=== PATIENT | male | born 1935 | race African-American/Black ===

== ENCOUNTER 2018-09-04 20:42 | Inpatient (IN) | payer OTHER ==
[~2018-09-04] VITALS: Ht 152.4 cm; Wt 104.3 kg
[2018-09-04] MEDS ORDERED: SODIUM CHLORIDE 0.9% 1,000 ML IV ONE (21:24)
[2018-09-04 22:14] LABS: HEMATOCRIT. 35.8 % (42.0-52.0); HEMOGLOBIN. 11.8 g/dL (14.0-18.0); MEAN PLATELET VOLUME 10.2 fl (7.4-10.4); PLATELET 114 x1000/uL (130-400); RED BLOOD CELL COUNT 4.37 mill/uL (4.7-6.1); RED CELL DISTRIBUTION WIDTH 15.2 % (11.6-14.6)
[2018-09-04 22:17] LABS: CHLORIDE 100 mEq/L (98-107)
[2018-09-04 22:19] LABS: INR 1.3; PROTHROMBIN TIME 13.4 sec (9.1-11.1)
[2018-09-04 22:39] LABS: PLATELET ESTIMATE DECREASED
[2018-09-04] MEDS ORDERED: SODIUM CHLORIDE 0.9% 1,000 ML IV SCH (23:44)
[2018-09-04] MEDS ORDERED: AZITHROMYCIN 500 MG in DEXT 5% WATER 250 ML IV STA (23:48)
[2018-09-05] MEDS ORDERED: CEFTRIAXONE 1 G PREMIX 50 ML IV ONE
[2018-09-05] MEDS ORDERED: MAGNESIUM/ALUMINUM HYDROXIDE/SIMETHICONE 30ML UDC PO PRN (00:15)
[2018-09-05] MEDS ORDERED: ONDANSETRON HCL 4MG/2ML INJ IV PRN (00:15)
[2018-09-05] MEDS ORDERED: ALBUTEROL (0.083%) 2.5MG/3ML NEB HHN STA (00:28)
[2018-09-05] MEDS ORDERED: IPRATROPIUM BROMIDE (0.02%) 0.5MG/2.5ML NEB HHN STA (00:28)
[2018-09-05] MEDS: ACETAMINOPHEN 325MG TABLET PO PRN (00:57)
[2018-09-05 02:05] LABS: CLARITY URINE CLOUDY (CLEAR); COLOR URINE DARK YELLOW (YELLOW); KETONES URINE TRACE (NEGATIVE); LEUKOCYTE ESTERASE URINE 2+ (NEGATIVE); NITRITE URINE NEGATIVE (NEGATIVE); OCCULT BLOOD URINE 2+ (NEGATIVE); PH URINE 5.5 (4.5-8.0); PROTEIN URINE 2+ (NEGATIVE)
[2018-09-05 04:00] VITALS: BP 143/62
[2018-09-05] MEDS ORDERED: IPRATROPIUM/ALBUTEROL 0.5-3(2.5)MG/3ML NEB HHN PRN (05:30)
[2018-09-05 06:39] VITALS: BP 157/75
[2018-09-05 08:00] VITALS: BP 139/64
[2018-09-05] MEDS ORDERED: LEVOFLOXACIN 250MG PREMIX 50 ML IV SCH (11:00)
[2018-09-05] MEDS ORDERED: BENZONATATE 100MG CAPSULE PO PRN (11:00)
[2018-09-05] MEDS ORDERED: DIATR MEGLU/DIATRIZOATE SOLN 30ML PO SCH (11:00)
[2018-09-05 11:22] LABS: HEMATOCRIT 35.5 % (42.0-52.0); HEMOGLOBIN 11.6 g/dL (14.0-18.0); MEAN CORPUSCULAR VOLUME 82.5 fL (80.0-94.0); PLATELET 106 x1000/uL (130-400); RED BLOOD CELL COUNT 4.31 mill/uL (4.7-6.1); RED CELL DISTRIBUTION WIDTH 15.2 % (11.6-14.6)
[2018-09-05 11:30] LABS: BG BASE EXCESS -1.4 mmol/L (-2.0-2.0); BG CARBOXYHEMOGLOBIN 0.6 % (0.5-1.5); BG DEOXYHEMOGLOBIN 2.9 % (0.0-5.0); BG FRACTION INSPIRED OXYGEN 28; BG HCO3 ACT 21.3 mmol/L (22.0-26.0); BG METHEMOGLOBIN 0.5 % (0.0-1.5); BG OXYGEN SATURATION 97.1 % (92.0-98.5); BG PCO2 29.6 mmHg (35.0-45.0); BG PH 7.474 (7.350-7.450); BG PO2 87.8 mmHg (75.0-100.0); BG SAMPLE SITE RIGHT RADIAL; BG TOTAL HEMOGLOBIN 11.8 g/dL (12.0-18.0); BG VENT MODE NASAL CANNULA
[2018-09-05 11:59] LABS: CHLORIDE 102 mEq/L (98-107)
[2018-09-05 12:00] VITALS: BP 130/64
[2018-09-05 12:19] LABS: CREATINE KINASE 1187 IU/L (39-308)
[2018-09-05 12:50] LABS: HEPATITIS B SURFACE ANTIGEN NEGATIVE
[2018-09-05 13:17] LABS: HEPATITIS B CORE AB IGM NEGATIVE
[2018-09-05 13:18] LABS: HEPATITIS A AB IGM NEGATIVE (NEGATIVE)
[2018-09-05] MEDS: IPRATROPIUM/ALBUTEROL 0.5-3(2.5)MG/3ML NEB HHN SCH ×2 (13:24→20:17)
[2018-09-05] MEDS: SODIUM CHLORIDE 0.9% 1,000 ML IV SCH (15:41)
[2018-09-05] MEDS: LEVOFLOXACIN 250MG PREMIX 50 ML IV SCH (15:41)
[2018-09-05 16:00] VITALS: BP 128/67
[2018-09-05] MEDS ORDERED: MIRT15TA MT (19:04)
[2018-09-05] MEDS ORDERED: VERA240C3 MT (19:04)
[2018-09-05] MEDS ORDERED: TERA10CA4 MT (19:04)
[2018-09-05] MEDS ORDERED: ATOR-2 MT (19:04)
[2018-09-05] MEDS ORDERED: FINA5TAB11 MT (19:04)
[2018-09-05] MEDS ORDERED: CLOP75TA16 MT (19:04)
[2018-09-05] MEDS ORDERED: QUET25TA MT (19:04)
[2018-09-05] MEDS ORDERED: BUPR-43 MT (19:04)
[2018-09-05] MEDS ORDERED: OMEP20CA10 MT (19:04)
[2018-09-05 20:00] VITALS: BP 140/74
[2018-09-05] MEDS: GUAIFENESIN 600MG ER TABLET PO SCH (21:41)
[2018-09-06] VITALS: BP 140/71
[2018-09-06] MEDS ORDERED: CEFTRIAXONE 1 G PREMIX 50 ML IV SCH (00:30)
[2018-09-06] MEDS: ACETAMINOPHEN 325MG TABLET PO PRN (00:51)
[2018-09-06] MEDS: SODIUM CHLORIDE 0.9% 1,000 ML IV SCH (01:02)
[2018-09-06] MEDS: IPRATROPIUM/ALBUTEROL 0.5-3(2.5)MG/3ML NEB HHN SCH ×3 (02:14→14:12)
[2018-09-06 04:00] VITALS: BP 103/68
[2018-09-06 07:02] LABS: HEMATOCRIT 32.8 % (42.0-52.0); HEMOGLOBIN 10.8 g/dL (14.0-18.0); MEAN CORPUSCULAR HEMOGLOBIN 27.1 pg (28.0-32.0); MEAN CORPUSCULAR VOLUME 82.1 fL (80.0-94.0); PLATELET 103 x1000/uL (130-400); RED BLOOD CELL COUNT 3.99 mill/uL (4.7-6.1); RED CELL DISTRIBUTION WIDTH 15.2 % (11.6-14.6)
[2018-09-06 08:00] VITALS: BP 133/75
[2018-09-06 08:10] LABS: CHLORIDE 104 mEq/L (98-107)
[2018-09-06] MEDS: GUAIFENESIN 600MG ER TABLET PO SCH (09:37)
[2018-09-06 12:00] VITALS: BP 119/73
[2018-09-06] MEDS ORDERED: BENZONATATE 100MG CAPSULE PO SCH (12:00)
[2018-09-06] MEDS: LEVOFLOXACIN 250MG PREMIX 50 ML IV SCH (12:19)
[2018-09-06 13:38] VITALS: BP 119/73
== END 2018-09-06 14:45 | disposition short-term general hospital (02) | DRG 871 ==
LOC: ER 20:42 → 5WST 23:47 → EDBEDREQTM 23:51 → EDBEDREQ 23:51 → ENRESERV 09-05 01:58
PROVIDERS: ADMIT Family Medicine Adult Medicine; ATTEND Family Medicine Adult Medicine
DX: A41.51 Sepsis due to Escherichia coli [E. coli] (principal); J96.00 Acute respiratory failure, unspecified whether with hypoxia or hypercapnia; N39.0 Urinary tract infection, site not specified; N17.9 Acute kidney failure, unspecified; I13.0 Hypertensive heart and chronic kidney disease with heart failure and stage 1 through stage 4 chronic kidney disease, or unspecified chronic kidney disease; J45.901 Unspecified asthma with (acute) exacerbation; I69.354 Hemiplegia and hemiparesis following cerebral infarction affecting left non-dominant side; I50.40 Unspecified combined systolic (congestive) and diastolic (congestive) heart failure; F32.9 Major depressive disorder, single episode, unspecified; E11.22 Type 2 diabetes mellitus with diabetic chronic kidney disease; E86.0 Dehydration; F03.90 Unspecified dementia, unspecified severity, without behavioral disturbance, psychotic disturbance, mood disturbance, and anxiety; J40 Bronchitis, not specified as acute or chronic; J06.9 Acute upper respiratory infection, unspecified; N18.9 Chronic kidney disease, unspecified; Z87.891 Personal history of nicotine dependence
CPT/HCPCS: 36415; 36600; 70551; 71045; 71250; 74176; 82375; 82550; 82805; 82962; 83605; 83880; 84145; 84484; 85027; 86705; 86709; 86803; 87077; 87186; 87340; 87804; 93005; 94640; 96365; 96367; 99285; J0456; J0696; J1956; J2405; J7030; J7060; J7611; J7620; Q9963

== ENCOUNTER 2018-09-19 07:02 | Inpatient (IN) | payer OTHER ==
[~2018-09-19] VITALS: Ht 175.3 cm; Wt 94.3 kg
[~2018-09-19 07:02] MED LIST: ATOR-2 MT; BUPR-43 MT; CLOP75TA16 MT; FINA5TAB11 MT; MIRT15TA MT; OMEP20CA10 MT; QUET25TA MT; TERA10CA4 MT; VERA240C3 MT
[2018-09-19 07:27] LABS: BASOPHILS % 0.4 % (0.0-2.0); EOSINOPHILS % 3.9 % (0.0-5.0); HEMATOCRIT. 32.9 % (42.0-52.0); HEMOGLOBIN. 10.8 g/dL (14.0-18.0); LYMPHOCYTES % 25.3 % (20.0-50.0); MEAN CORPUSCULAR VOLUME 82.1 fL (80.0-94.0); MEAN PLATELET VOLUME 8.5 fl (7.4-10.4); MONOCYTES % 11.7 % (2.0-8.0); NEUTROPHILS % 58.7 % (40.0-76.0); PLATELET 317 x1000/uL (130-400); RED BLOOD CELL COUNT 4.01 mill/uL (4.7-6.1); RED CELL DISTRIBUTION WIDTH 15.6 % (11.6-14.6)
[2018-09-19 07:33] LABS: CHLORIDE 106 mEq/L (98-107)
[2018-09-19 07:39] LABS: ETHANOL BLOOD < 10 mg/dL; INR 1.2; LDL CHOLESTEROL 50 mg/dL (5-100); PROTHROMBIN TIME 12.5 sec (9.1-11.1)
[2018-09-19 09:12] LABS: CLARITY URINE CLEAR (CLEAR); COLOR URINE YELLOW (YELLOW); KETONES URINE NEGATIVE (NEGATIVE); LEUKOCYTE ESTERASE URINE NEGATIVE (NEGATIVE); NITRITE URINE NEGATIVE (NEGATIVE); OCCULT BLOOD URINE NEGATIVE (NEGATIVE); PROTEIN URINE NEGATIVE (NEGATIVE); SPECIFIC GRAVITY URINE 1.013 (1.005-1.030); UROBILINOGEN URINE 0.2 E.U./dL (0.2-1.0)
[2018-09-19 10:52] LABS: *AMPHETAMINES SCREEN URINE NEGATIVE (NEGATIVE); *BARBITURATES SCREEN URINE NEGATIVE (NEGATIVE); *COCAINE SCREEN URINE NEGATIVE (NEGATIVE)
[2018-09-19 10:54] LABS: *BENZODIAZEPINES SCREEN URINE NEGATIVE (NEGATIVE); CANNABINOID URINE SCREEN NEGATIVE (NEGATIVE); METHADONE URINE SCREEN NEGATIVE (NEGATIVE); OPIATES URINE SCREEN NEGATIVE (NEGATIVE); PHENCYCLIDINE URINE SCREEN NEGATIVE (NEGATIVE)
[2018-09-19] MEDS ORDERED: IOHEXOL-350 100 ML BOTTLE ONE (11:46)
[2018-09-19] MEDS ORDERED: HYDROCODONE/ACETAMINOPHEN 5/325MG TABLET PO PRN (12:15)
[2018-09-19] MEDS ORDERED: DOCUSATE SODIUM 100MG CAPSULE PO PRN (12:15)
[2018-09-19] MEDS ORDERED: ONDANSETRON HCL 4MG/2ML INJ IV PRN (12:15)
[2018-09-19] MEDS ORDERED: IPRATROPIUM/ALBUTEROL 0.5-3(2.5)MG/3ML NEB INH PRN (12:15)
[2018-09-19] MEDS ORDERED: CLONIDINE 0.1MG TABLET PO PRN (12:15)
[2018-09-19] MEDS ORDERED: ACETAMINOPHEN 325MG TABLET PO PRN (12:15)
[2018-09-19] MEDS ORDERED: GUAIFENESIN 200MG/10ML SUGAR FREE UDC PO PRN (12:15)
[2018-09-19] MEDS ORDERED: CLOPIDOGREL 75MG TABLET PO NR (16:30)
[2018-09-19 22:40] VITALS: BP 147/87
[2018-09-20] VITALS (12 sets, daily range): BP systolic 129–159; BP diastolic 68–83
[2018-09-20] MEDS: VERAPAMIL HCL 120MG TABLET PO SCH ×3 (06:12→20:48)
[2018-09-20 07:27] LABS: BASOPHILS % 0.7 % (0.0-2.0); EOSINOPHILS % 6.2 % (0.0-5.0); HEMATOCRIT. 32.5 % (42.0-52.0); HEMOGLOBIN. 10.4 g/dL (14.0-18.0); LYMPHOCYTES % 27.2 % (20.0-50.0); MEAN CORPUSCULAR HEMOGLOBIN 26.5 pg (28.0-32.0); MEAN CORPUSCULAR VOLUME 82.4 fL (80.0-94.0); MEAN PLATELET VOLUME 8.9 fl (7.4-10.4); NEUTROPHILS % 52.9 % (40.0-76.0); PLATELET 303 x1000/uL (130-400); RED BLOOD CELL COUNT 3.94 mill/uL (4.7-6.1); RED CELL DISTRIBUTION WIDTH 15.7 % (11.6-14.6)
[2018-09-20] MEDS ORDERED: OMEPRAZOLE 20MG CAPSULE EXTENDED RELEASE PO SCH (07:30)
[2018-09-20 07:51] LABS: CHLORIDE 104 mEq/L (98-107)
[2018-09-20 08:00] LABS: HDL CHOLESTEROL 32 mg/dL (40-59); LDL CHOLESTEROL 50 mg/dL (5-100)
[2018-09-20] MEDS ORDERED: CLOPIDOGREL 75MG TABLET PO SCH (09:00)
[2018-09-20] MEDS ORDERED: BUPROPION HCL 150MG TABLET XL 24HR PO SCH (09:00)
[2018-09-20] MEDS ORDERED: ASPIRIN 81MG EC TABLET PO SCH (09:00)
[2018-09-20] MEDS ORDERED: FINASTERIDE 5MG TABLET PO SCH (09:00)
[2018-09-20 09:55] LABS: HDL CHOLESTEROL 33 mg/dL (40-59); LDL CHOLESTEROL 51 mg/dL (5-100)
[2018-09-20 10:15] LABS: VITAMIN B12 SERUM 1253 pg/mL (211-911)
[2018-09-20 10:50] LABS: FOLIC ACID (FOLATE) SERUM > 20.00 ng/mL (>5.38)
[2018-09-20] MEDS ORDERED: CEFP200T13 MT (13:39)
[2018-09-20] MEDS ORDERED: CEFPODOXIME PROXETIL 200 MG PO SCH (15:30)
[2018-09-20] MEDS ORDERED: ATORVASTATIN CALCIUM 20MG TABLET PO SCH (21:00)
[2018-09-20] MEDS ORDERED: TERAZOSIN HCL 5MG CAPSULE PO SCH (21:00)
[2018-09-20] MEDS ORDERED: MIRTAZAPINE 15MG TABLET PO SCH (21:00)
[2018-09-20] MEDS ORDERED: QUETIAPINE FUMARATE 25MG TABLET PO SCH (21:00)
[2018-09-20] MEDS ORDERED: ATORVASTATIN CALCIUM 40MG TABLET PO SCH (21:00)
== END 2018-09-20 22:15 | disposition short-term general hospital (02) | DRG 64 ==
LOC: ER 07:24 → 5EST 10:34 → EDBEDREQ 10:42 → ENRESERV 21:25
PROVIDERS: ADMIT Hospitalist; ATTEND Hospitalist
DX: I63.9 Cerebral infarction, unspecified (principal); N17.2 Acute kidney failure with medullary necrosis; I69.354 Hemiplegia and hemiparesis following cerebral infarction affecting left non-dominant side; E44.0 Moderate protein-calorie malnutrition; D64.9 Anemia, unspecified; E78.00 Pure hypercholesterolemia, unspecified; E78.5 Hyperlipidemia, unspecified; F03.90 Unspecified dementia, unspecified severity, without behavioral disturbance, psychotic disturbance, mood disturbance, and anxiety; N40.0 Benign prostatic hyperplasia without lower urinary tract symptoms; R47.01 Aphasia; I11.0 Hypertensive heart disease with heart failure; I50.9 Heart failure, unspecified; R26.9 Unspecified abnormalities of gait and mobility; J45.909 Unspecified asthma, uncomplicated; Z87.891 Personal history of nicotine dependence; Z79.899 Other long term (current) drug therapy; Z68.30 Body mass index [BMI] 30.0-30.9, adult
CPT/HCPCS: 36415; 70496; 70498; 70551; 71045; 80061; 80305; 82607; 82746; 82962; 83036; 83721; 84439; 84443; 84481; 84484; 92523; 92610; 93005; 93306; 93880; 93970; 97166; 99285; G0482; Q9967; A4315

== ENCOUNTER 2023-08-26 10:53 | Emergency (ER) | payer OTHER ==
[~2023-08-26] VITALS: Ht 172.7 cm; Wt 81.6 kg
[~2023-08-26 10:53] MED LIST changes: -BUPR-43 MT; +BUPR-46 MT; +CEFP200T13 MT; +CLOP-31 MT; -CLOP75TA16 MT; +MIRT-144 MT; -MIRT15TA MT; -OMEP20CA10 MT; +OMEP20CA14 MT
[2023-08-26 10:56] VITALS: TEMP 98.5; O2SAT 99
[2023-08-26 12:00] LABS: DIFFERENTIAL COMMENT 0; HEMATOCRIT. 37.4 % (42.0-52.0); MEAN CORPUSCULAR HEMOGLOBIN 24.8 pg (28.0-32.0); MEAN CORPUSCULAR VOLUME 77.5 fL (80.0-94.0); MEAN PLATELET VOLUME 9.3 fl (7.4-10.4); PLATELET 98 x1000/uL (130-400); RED BLOOD CELL COUNT 4.83 mill/uL (4.7-6.1); RED CELL DISTRIBUTION WIDTH 17.7 % (11.6-14.6); WHITE BLOOD COUNT 3.2 x1000/uL (4.5-11.0)
[2023-08-26 12:03] LABS: LYMPHOCYTES % 28.2 % (20.0-50.0); NEUTROPHILS % 59.5 % (40.0-76.0)
[2023-08-26 12:04] LABS: BASOPHILS % 0.4 % (0.0-2.0); EOSINOPHILS % 2.5 % (0.0-5.0); MONOCYTES % 9.4 % (2.0-8.0)
[2023-08-26 12:08] LABS: CHLORIDE 110 mEq/L (98-107); INDEX HEMOLYSI 1 (1-3); INDEX ICTERIC 1 (1-4); INDEX LIPEMIC 1 (1-3); SODIUM 140 mEq/L (136-145)
[2023-08-26 12:18] LABS: ALANINE AMINOTRANSFERASE 19 IU/L (13-61); ALBUMIN 3.5 g/dL (3.4-5.0); ASPARTATE AMINOTRANSFERASE 19 IU/L (15-37); BILIRUBIN TOTAL 0.8 mg/dL (0.1-1.0); CALCIUM 8.1 mg/dL (8.5-10.1); CARBON DIOXIDE 27 mEq/L (21-32); CREATININE 1.4 mg/dL (0.6-1.3); ETHANOL BLOOD < 10 mg/dL (<10); GLUCOSE 125 mg/dL (70-105); PROTEIN TOTAL 6.7 g/dL (6.0-8.3); TROPONIN I HIGH SENSITIVITY 26 ng/L (<78); UREA NITROGEN BLOOD 13 mg/dL (7-21)
[2023-08-26] MEDS ORDERED: ASPIRIN 81MG TABLET PO ONE (12:30)
[2023-08-26 12:39] LABS: INR 1.2; PROTHROMBIN TIME 12.4 sec (9.6-11.0)
[2023-08-26 17:38] VITALS: BP 160/91; PULSE 79; RESP 16
== END 2023-08-26 17:45 | disposition short-term general hospital (02) ==
LOC: ER 11:03
DX: R47.81 Slurred speech (principal); J44.9 Chronic obstructive pulmonary disease, unspecified; E78.00 Pure hypercholesterolemia, unspecified; I10 Essential (primary) hypertension; Z86.73 Personal history of transient ischemic attack (TIA), and cerebral infarction without residual deficits; Z79.899 Other long term (current) drug therapy
CPT/HCPCS: 36415; 70496; 70498; 71045; 80053; 80320; 82962; 84484; 85025; 93005; 99285; G0480